=== PATIENT | male | born 1955 ===

== ENCOUNTER → 2017-04-02 | Outpatient (CLI) | payer MEDICAID | LOC: FCPNEURO 20:30 | PROVIDERS: ATTEND Psychiatry & Neurology Sleep Medicine | DX: G47.31 Primary central sleep apnea (principal); G47.33 Obstructive sleep apnea (adult) (pediatric); G47.61 Periodic limb movement disorder ==

== ENCOUNTER → 2017-04-12 | Outpatient (CLI) | payer MEDICAID | LOC: SBRMNEURO 22:35 | PROVIDERS: ATTEND Psychiatry & Neurology Sleep Medicine | DX: G47.31 Primary central sleep apnea (principal); G47.61 Periodic limb movement disorder ==